=== PATIENT | male | born 1965 | race African-American/Black ===

== ENCOUNTER 2016-11-24 08:15 | Emergency (ER) | payer MEDICAID ==
[~2016-11-24] VITALS: Ht 175.3 cm; Wt 106.0 kg
[2016-11-24] MEDS ORDERED: LISI-604 PO (08:22)
[2016-11-24] MEDS ORDERED: LISINOPRIL 20MG TABLET PO ONE (08:30)
[2016-11-24] MEDS ORDERED: ACETAMINOPHEN 325MG TABLET PO ONE (08:30)
[2016-11-24 08:51] VITALS: BP 172/73
== END 2016-11-24 10:05 | disposition home or self-care (01) ==
LOC: ER 08:25
DX: M25.539 Pain in unspecified wrist (principal); I10 Essential (primary) hypertension; E78.00 Pure hypercholesterolemia, unspecified
CPT/HCPCS: 29125; 99283

== ENCOUNTER 2017-01-13 07:34 | Emergency (ER) | payer MEDICAID ==
[~2017-01-13] VITALS: Ht 170.2 cm; Wt 109.0 kg
[~2017-01-13 07:34] MED LIST: LISI-604 PO
[2017-01-13 08:38] LABS: EOSINOPHILS % 0.6 % (0.0-5.0); HEMATOCRIT. 38.2 % (42.0-52.0); HEMOGLOBIN. 12.9 g/dL (14.0-18.0); LYMPHOCYTES % 14.4 % (20.0-50.0); MEAN CORPUSCULAR HEMOGLOBIN 29.3 pg (28.0-32.0); MEAN PLATELET VOLUME 9.1 fl (7.4-10.4); MONOCYTES % 12.7 % (2.0-8.0); NEUTROPHILS % 71.3 % (40.0-76.0); PLATELET 212 x1000/uL (130-400); RED BLOOD CELL COUNT 4.39 mill/uL (4.7-6.1)
[2017-01-13 09:08] LABS: CLARITY URINE CLEAR (CLEAR); COLOR URINE YELLOW (YELLOW); GLUCOSE URINE NEGATIVE (NEGATIVE); KETONES URINE NEGATIVE (NEGATIVE); LEUKOCYTE ESTERASE URINE 2+ (NEGATIVE); NITRITE URINE NEGATIVE (NEGATIVE); OCCULT BLOOD URINE 1+ (NEGATIVE); PROTEIN URINE NEGATIVE (NEGATIVE); SPECIFIC GRAVITY URINE 1.012 (1.005-1.030); UROBILINOGEN URINE 0.2 E.U./dL (0.2-1.0)
[2017-01-13 09:15] VITALS: BP 160/77
[2017-01-13 09:23] LABS: *AMPHETAMINES SCREEN URINE NEGATIVE (NEGATIVE); *BARBITURATES SCREEN URINE NEGATIVE (NEGATIVE); *BENZODIAZEPINES SCREEN URINE NEGATIVE (NEGATIVE); *COCAINE SCREEN URINE NEGATIVE (NEGATIVE); CANNABINOID URINE SCREEN PRESUMTIVE POSITIVE (NEGATIVE); METHADONE URINE SCREEN NEGATIVE (NEGATIVE); OPIATES URINE SCREEN NEGATIVE (NEGATIVE); PHENCYCLIDINE URINE SCREEN NEGATIVE (NEGATIVE)
== END 2017-01-13 11:01 | disposition home or self-care (01) ==
LOC: ER 08:11
DX: N17.9 Acute kidney failure, unspecified (principal); R33.9 Retention of urine, unspecified; I10 Essential (primary) hypertension; E78.00 Pure hypercholesterolemia, unspecified
CPT/HCPCS: 36415; 80048; 80305; 81001; 85025; 99284

== ENCOUNTER 2017-11-21 20:18 | Emergency (ER) | payer MEDICAID ==
[~2017-11-21] VITALS: Ht 175.3 cm; Wt 105.0 kg
[2017-11-21 20:40] VITALS: BP 152/72
== END 2017-11-22 03:00 | disposition left against medical advice (07) ==
LOC: ER 20:18
DX: H57.8 Other specified disorders of eye and adnexa (principal); H53.8 Other visual disturbances; Z53.21 Procedure and treatment not carried out due to patient leaving prior to being seen by health care provider

== ENCOUNTER 2020-04-24 04:58 | Emergency (ER) | payer SELFPAY ==
[~2020-04-24] VITALS: Ht 175.3 cm; Wt 104.0 kg
[2020-04-24 05:01] VITALS: BP 195/92
[2020-04-24] MEDS ORDERED: CLONIDINE 0.1MG TABLET PO ONE (05:30)
== END 2020-04-24 05:54 | disposition left against medical advice (07) ==
LOC: ER 04:58
DX: I10 Essential (primary) hypertension (principal); Z53.21 Procedure and treatment not carried out due to patient leaving prior to being seen by health care provider
CPT/HCPCS: 93005; 99283

== ENCOUNTER 2020-04-29 03:15 | Emergency (ER) | payer OTHER ==
[~2020-04-29] VITALS: Ht 175.3 cm; Wt 104.0 kg
[2020-04-29] MEDS ORDERED: ONDANSETRON HCL 4MG/2ML INJ IV STA (03:53)
[2020-04-29] MEDS ORDERED: MAGNESIUM/ALUMINUM HYDROXIDE/SIMETHICONE 30ML UDC PO STA (03:53)
[2020-04-29] MEDS ORDERED: SODIUM CHLORIDE 0.9% 1,000 ML IV ONE (03:53)
[2020-04-29] MEDS ORDERED: KETOROLAC 30MG/ML VIAL IV STA (03:53)
[2020-04-29 04:20] LABS: BASOPHILS % 1.2 % (0.0-2.0); EOSINOPHILS % 0.3 % (0.0-5.0); HEMATOCRIT. 49.6 % (42.0-52.0); HEMOGLOBIN. 16.8 g/dL (14.0-18.0); LYMPHOCYTES % 30.7 % (20.0-50.0); MEAN CORPUSCULAR HEMOGLOBIN 29.5 pg (28.0-32.0); MEAN CORPUSCULAR VOLUME 87.1 fL (80.0-94.0); MEAN PLATELET VOLUME 9.4 fl (7.4-10.4); MONOCYTES % 11.5 % (2.0-8.0); NEUTROPHILS % 56.3 % (40.0-76.0); PLATELET 209 x1000/uL (130-400); RED BLOOD CELL COUNT 5.69 mill/uL (4.7-6.1); RED CELL DISTRIBUTION WIDTH 15.4 % (11.6-14.6)
[2020-04-29 04:23] LABS: CHLORIDE 102 mEq/L (98-107)
[2020-04-29 05:02] LABS: CLARITY URINE CLEAR (CLEAR); COLOR URINE YELLOW (YELLOW); KETONES URINE TRACE (NEGATIVE); LEUKOCYTE ESTERASE URINE NEGATIVE (NEGATIVE); NITRITE URINE NEGATIVE (NEGATIVE); OCCULT BLOOD URINE 1+ (NEGATIVE); PH URINE 6.5 (4.5-8.0); PROTEIN URINE NEGATIVE (NEGATIVE); SPECIFIC GRAVITY URINE 1.015 (1.005-1.030)
[2020-04-29 07:11] VITALS: BP 144/75
== END 2020-04-29 07:14 | disposition home or self-care (01) ==
LOC: ER 03:15
DX: I12.9 Hypertensive chronic kidney disease with stage 1 through stage 4 chronic kidney disease, or unspecified chronic kidney disease (principal); N18.4 Chronic kidney disease, stage 4 (severe); R00.0 Tachycardia, unspecified
CPT/HCPCS: 36415; 80053; 81003; 83690; 85025; 93005; 96374; 96375; 99284; J1885; J2405; J7030

== ENCOUNTER 2020-05-01 04:29 | Emergency (ER) | payer OTHER ==
[~2020-05-01] VITALS: Ht 175.3 cm; Wt 103.0 kg
[2020-05-01 05:44] LABS: CHLORIDE 104 mEq/L (98-107)
[2020-05-01 06:23] LABS: EOSINOPHILS % 0.4 % (0.0-5.0); HEMATOCRIT. 46.4 % (42.0-52.0); HEMOGLOBIN. 15.8 g/dL (14.0-18.0); LYMPHOCYTES % 34.9 % (20.0-50.0); MEAN CORPUSCULAR HEMOGLOBIN 29.6 pg (28.0-32.0); MEAN CORPUSCULAR VOLUME 87.1 fL (80.0-94.0); MEAN PLATELET VOLUME 9.5 fl (7.4-10.4); NEUTROPHILS % 53.7 % (40.0-76.0); PLATELET 213 x1000/uL (130-400); RED BLOOD CELL COUNT 5.32 mill/uL (4.7-6.1); RED CELL DISTRIBUTION WIDTH 15.2 % (11.6-14.6)
[2020-05-01 08:25] VITALS: BP 160/76
== END 2020-05-01 08:28 | disposition home or self-care (01) ==
LOC: ER 04:34
DX: R25.2 Cramp and spasm (principal); I10 Essential (primary) hypertension
CPT/HCPCS: 36415; 80053; 85025; 93005; 99285